=== PATIENT | female | born 1965 | race Caucasian/White ===

== ENCOUNTER → 2018-07-10 | Outpatient (CLI) | payer OTHER ==
[~2018-07-10] MED LIST: AMOXICILLIN 50500 MG PO; CARDIZEM; CIPROFLOXACIN500 M1 PO; LEVAQUIN 500 M500 M8 PO; NORCO 5-325 TA1 EACH PO; OSELB75 PO; PYRIDIUM200 MG PO
== END ==
LOC: ULTRA 09:34
DX: N83.201 Unspecified ovarian cyst, right side (principal); R93.89 Abnormal findings on diagnostic imaging of other specified body structures